=== PATIENT | female | born 1940 | race African-American/Black ===

== ENCOUNTER 2021-11-09 17:25 | Emergency (ER) | payer MEDICARE ==
[2021-11-09] VITALS (7 sets, daily range): BP systolic 100–140; BP diastolic 50–70
[~2021-11-09] VITALS: Ht 162.6 cm; Wt 85.9 kg
[2021-11-09] MEDS ORDERED: IBRU140C PO (17:43)
[2021-11-09] MEDS ORDERED: BENA1TAB71 PO (17:44)
[2021-11-09] MEDS ORDERED: SIMV-259 PO (17:44)
[2021-11-09] MEDS ORDERED: LEVO75 PO (17:44)
[2021-11-09] MEDS ORDERED: IBRU420T PO (17:47)
[2021-11-09 18:47] LABS: PLATELET COUNT (AUTO) 196 K/uL (150-450)
[2021-11-09 18:51] LABS: HEMATOCRIT 25.9 % (36-46); MEAN CORPUSCULAR HEMOGLOBIN 27.8 pg (26.0-34.0); MEAN CORPUSCULAR HGB CONC 31.4 G/dL (31.0-37.0); MEAN CORPUSCULAR VOLUME 89 fL (80-100); RED BLOOD CELL COUNT(AUTO) 2.92 MIL/uL (4.00-5.20); RED CELL DISTRIBUTION WIDTH 17.2 % (11.5-14.5)
[2021-11-09 18:54] LABS: HEMOGLOBIN 8.2 g/dL (12.0-16.0)
[2021-11-09 18:58] LABS: CALCIUM, TOTAL 8.5 mg/dL (8.8-10.5); CREATININE 2.16 mg/dL (0.60-1.30); POTASSIUM 4.6 mmol/L (3.5-5.1)
[2021-11-09 19:04] LABS: ALBUMIN 3.5 g/dL (3.4-5.0); BILIRUBIN,TOTAL 0.7 mg/dL (0.1-1.0); TOTAL PROTEIN, SERUM 7.3 g/dL (6.4-8.2)
[2021-11-09 19:05] LABS: BAND NEUTROPHILS % (MANUAL) 0 % (0-5)
[2021-11-10] VITALS: BP 134/62
[2021-11-11 16:26] LABS: LYMPHOCYTES % (MANUAL) 99 % (22-44); SEGMENTED NEUTROPHILS % 1 % (40-70)
== END 2021-11-10 00:31 | disposition home or self-care (01) ==
LOC: EMS 17:30
DX: D64.9 Anemia, unspecified (principal); C91.10 Chronic lymphocytic leukemia of B-cell type not having achieved remission; E03.9 Hypothyroidism, unspecified; I10 Essential (primary) hypertension; Z79.899 Other long term (current) drug therapy
CPT/HCPCS: 99285; 36430; 80053; 85025; 86850; 86900; 86901; 86923; 36415; P9016